=== PATIENT | male | born 1935 | race Caucasian/White ===

== ENCOUNTER 2017-10-06 17:57 | Emergency (ER) | payer OTHER ==
--- NOTE | 2017-10-06 18:09 | PDOC ---
History of Present Illness - General Chief Complaint: Pain Stated Complaint: PAIN Time Seen by Provider: 10/06/17 18:08 History Source: Patient, Care Provider (Father Deni and window [facility]mer [facility]) Exam Limitations: Dementia - History of Present Illness Initial Comments: Pt, w PMH of Parkinson's ds with dementia, HTN, HLD, and DM, presents with chest and back discomfort since yesterday. The pt lives in an assisted living home for retired [facility], and is accompanied by his caregiver, Leslie and Brother Deni. His caregivers state that in the early afternoon today, the pt complained of pain in his upper back between his shoulder blades, which radiated to his R jaw and both arms. On presentation, the pt complained of L sided chest pressure with no radiation. He states the chest tightness comes and goes, lasts for about an hour, and began while he was at rest. The discomfort was not associated with any diaphoresis, nausea or vomiting. He denies any fevers/chills, SOB, syncope, palpitations, swelling in his legs, or changes to his BM or urination. The pt was seen in the ED at [facility] last week (09/22) for a chest tightness and SOB. Cardiac work-up and chest x-ray was negative at that point. Due to lower BP , his PCP (Dr. Montiel) has stopped his HTN medication for the past week. 10/06/17 21:46 10/06/17 22:05 Past History - Travel Traveled outside of the country in the last 30 days: No Close contact w/someone who was outside of country & ill: No - Past Medical History Allergies/Adverse Reactions: Allergies Allergy/AdvReac Type Severity Reaction Status Date / Time No Known Allergies Allergy Verified 10/06/17 18:10 Home Medications: Ambulatory Orders Aspirin [Young Aspirin] 81 mg PO DAILY 02/28/14 Carbidopa/Levodopa [Carbidopa-Levo 50-200 Tab SA] 1 each PO BID 02/28/14 Cholecalciferol (Vitamin D3) [Vitamin D3] 2 tab PO DAILY 02/28/14 Glipizide 10 mg PO DAILY 02/28/14 Lisinopril [Prinivil] 5 mg PO DAILY 02/28/14 Rivastigmine [Exelon Patch 9.5 mg/24 Hours -] 1 each TD DAILY 02/28/14 Rosuvastatin Calcium [Crestor] 20 mg PO DAILY 02/28/14 metFORMIN HCL [Glucophage] 1,000 mg PO DAILY 02/28/14 Anemia: No Asthma: No Cancer: No Cardiac Disorders: No CVA: No COPD: No CHF: No Dementia: No Diabetes: Yes GI Disorders: No Disorders: No HTN: Yes Hypercholesterolemia: Yes Liver Disease: No Psychiatric Problems: Yes (DEMENTIA) Seizures: No Thyroid Disease: No - Surgical History Abdominal Surgery: Yes (appendectomy) Appendectomy: No Cardiac Surgery: No Cholecystectomy: No Lung Surgery: No Neurologic Surgery: No Orthopedic Surgery: No - Immunization History Immunization Up to Date: Yes - Suicide/Smoking/Psychosocial Hx Smoking History: Unknown if ever smoked Have you smoked in the past 12 months: No Hx Alcohol Use: No Drug/Substance Use Hx: No Substance Use Type: None Hx Substance Use Treatment: No Review of Systems - Review of Systems Able to Perform ROS?: Yes (Pt responds appropriately) Is the patient limited Korean proficient: Yes Constitutional: Yes: Weight Stable. No: Chills, Diaphoresis, Fever, Loss of Appetite, Malaise HEENTM: No: Recent change in vision, Difficulty Swallowing Respiratory: No: Cough, Orthopnea, Shortness of Breath, SOB at Rest, Productive cough Cardiac (ROS): Yes: Chest Pain ("pressure" like discomfort in chest), Chest Tightness. No: Edema, Irregular Heart Rate, Lightheadedness, Palpitations, Syncope ABD/GI: No: Abdominal Distended, Abd. Pain w/ defecation, Constipated, Diarrhea , Nausea, Poor Appetite, Poor Fluid Intake, Vomiting, Indigestion : No: Burning, Dysuria, Hematuria, Incontinence, Pain, Urgency Musculoskeletal: No: Back Pain, Joint Pain Integumentary: No: Bruising, Rash, Sweating Neurological: No: Headache, Unsteady Gait Psychiatric: Yes: Mood Swings (Pt has occasional agitation, controlled with Haldol per Dr. Montiel.). No: Sleep Pattern Change, Change in Appetite Endocrine: No: Change in Weight Hematologic/Lymphatic: No: Blood Clots All Other Systems: Reviewed and Negative *Physical Exam - Physical Exam General Appearance: Yes: Nourished, Appropriately Dressed, Thin. No: Apparent Distress HEENT: positive: EOMI, NELL, Normal ENT Inspection, Symmetrical, Hearing Grossly Normal. negative: Normal Voice (slight stuttering, pt has PD. Baseline for pt.) Neck: positive: Trachea midline, Normal Thyroid, Supple. negative: Tender, Rigid Respiratory/Chest: positive: Lungs Clear, Normal Breath Sounds. negative: Chest Tender, Respiratory Distress, Accessory Muscle Use, Crackles Cardiovascular: positive: Regular Rhythm, Regular Rate. negative: Edema, JVD, Murmur Vascular Pulses: Carotid (R): 4+, Carotid (L): 4+ Gastrointestinal/Abdominal: positive: Normal Bowel Sounds, Flat, Soft. negative : Tender, Organomegaly, Pulsatile Mass Lymphatic: negative: Adenopathy Musculoskeletal: positive: Normal Inspection. negative: CVA Tenderness Extremity: positive: Normal Capillary Refill, Normal Inspection, Normal Range of Motion. negative: Pedal Edema, Swelling, Calf Tenderness Integumentary: positive: Normal Color, Dry, Warm. negative: Clammy, Diaphoresis Neurologic: positive: paper maker II-XII NML intact, Fully Oriented, Alert, Normal Response, Motor Strength 5/5, Depressed Affect (Flat affect with stuttering speech.), Other (Pill rolling, resting tremor R hand. ) Heart Score/ECG Review - History History: Slightly suspicious (HTN, HLD. No prior AR. Chest tightness in back which radiates to shoulders. L chest discomfort on presentation.) - Electrocardiogram EKG: Normal - Age Age: >/= 65 - Risk Factors Risk Factors Heart Score: Yes Hx Hypercholesterolemia, Yes Hx Hypertension, Yes Hx Diabetes Based on the list above the patient has:: >/=3 risk factors or Hx atherosclerotic disease - Troponin Troponin: </= normal limit - Score Heart Score - Total: 4 - ECG Intrepretation Rhythm: Regular Rhythm - [place]: Normal - P and MS Prominent R with upright T in V1 (true posterior AR): No Delta Wave(s) Present: No WPW: No - QRS Poor R Wave Progression: No Q Wave Present: No - ST and T Early Repolarization: No Non Specific ST-T Wave changes: No Flattened T Waves: No Prolonged Q-T Interval: No - ECG Impressions Normal ECG: Yes Non-specific ST Elevation: No Ischemic Changes: No Bradycardia: No Torsades korey Pointes: No WPW: No ED Treatment Course - LABORATORY CBC & Chemistry Diagram: 10/06/17 20:00 Medical Decision Making - Medical Decision Making Pt seen 10 minutes after presentation (entered later). Pt presentation similar to prior visit in the ED last week (work-up at that time was negative). Will send CMP (check electrolytes) and troponin to r/o ACS. EKG within normal limits. 10/06/17 20:36 Awaiting chemistry results. Pt comfortable in bed. 10/06/17 20:40 Troponin .02, K within normal limits, BUN 28 (similar to pt baseline). Will repeat troponin at 0:00, if negative pt can return home. Pt and window trimmer agreeable to plan. Pt comfortably sleeping. Nurse alerted of troponin order. 10/06/17 21:20 Pt still lying comfortably in bed. Awaiting 2nd troponin exam. 10/06/17 22:38 Pt still lying comfortably in bed. Awaiting 2nd troponin exam. 10/06/17 23:04 Pt signed-out to Dr. Farrar. He will repeat 2nd troponin exam. 10/06/17 23:35 *DC/Admit/Observation/Transfer Diagnosis at time of Disposition: Parkinson disease Chest pain Qualifiers: Chest pain type: unspecified Qualified Code(s): R07.9 - Chest pain, unspecified - Referrals - Patient Instructions Additional Instructions: Please follow-up with your primary care doctor, Dr. Montiel, to discuss your visit today and recent chest discomfort. Please continue your home medications as prescribed by Dr. Montiel. Please return for any worsening or new chest pain, shortness of breath, fevers/chills, or any other concern. - Post Discharge Activity
[2017-10-06 18:10] VITALS: TEMP 97; BMI 22.6
--- NOTE | 2017-10-06 19:04 | PDOC ---
Attending Attestation - HPI HPI: 10/06/17 21:18 The patient is a 82 year old male with a significant past medical history of diabetes, hypertension, hypercholesterolemia, hyperlipidemia, dementia, Parkinsons, who presents to the emergency department complaining of radiating shoulder pain since 3 days ago. Patient is a moderately poor historian. He presents with left-sided chest pain that radiates through to his back between his shoulder blades and shoulder pain that radiates bilaterally into his arms. He notes that the pain is constant for approximately 1 hour and then subsides. As per patients caregiver, patient has not taken hypertension medication but took aspirin this morning. Patients [facility] brother accompanying him states that he felt okay today but he felt anxious when his roommate fell today and had to go to ER which set off his symptoms. At baseline, patient has right hand resting tremor and is generally responsive. The patient does not currently experience pain. Denies chest tightness, shortness of breath, headache, and dizziness. Denies fevers, chills, nausea, vomiting, diarrhea, and constipation. Denies urinary/bowel changes. Allergies: NKA Past surgical history: appendectomy Social history: No reported cigarette, alcohol, or drug use. PCP: unknown - Physicial Exam PE: 10/06/17 21:20 GENERAL: Moderately anxious. Thin Well-appearing, well-nourished. HEENT: Normocephalic, atraumatic. PERRL, EOM intact. CARDIOVASCULAR: No JVD. Normal S1, S2. Regular rate and rhythm. PULMONARY: Clear to auscultation bilaterally. ABDOMEN: Soft, non-distended, non-tender. EXTREMITIES: No pitting edema. Normal ROM in all four extremities. No gross deformities. SKIN: Warm, dry. No rash NEUROLOGICAL: Resting tremor secondary to Parkinson's. No focal neurological deficits. - Medical Decision Making 10/06/17 21:33 Documentation prepared by Sherrell Diaz, acting as territory sales manager medical for Zulema Nuñez MD. <Sherrell Diaz - Last Filed: 10/06/17 21:18> - Resident Resident Name: Elida Jonas - ED Attending Attestation I have performed the following: I have examined & evaluated the patient, The case was reviewed & discussed with the resident, I agree w/resident's findings & plan, Exceptions are as noted - HPI HPI: 10/06/17 19:02 82-year-old male from residential facility for b/l shoulder pain . He was recently admitted on September 22 for 24 hours for the same complaint and had a negative workup at that time. - Medical Decision Making 10/06/17 20:06 Father Deni [phone] 10/07/17 00:58 2 negative troponin,pt discharged home <Zulema Nuñez - Last Filed: 10/07/17 00:58>
[2017-10-06] MEDS ORDERED: CARBIDOPA/LEVODOPA 25/100 TABLET (FP) ONE ×3 (20:35→20:52)
[2017-10-06 20:45] LABS: ALBUMIN 3.5 g/dl (3.4-5.0); ANION GAP 7 (8-16); BILIRUBIN,TOTAL 0.4 mg/dL (0.2-1.0); BLOOD UREA NITROGEN 28 mg/dL (7-18); CALCIUM 8.6 mg/dL (8.5-10.1); CHLORIDE 106 mmol/L (98-107); CO2 28 mmol/L (21-32); CREATININE 0.9 mg/dL (0.7-1.3); GLUCOSE,RANDOM 80 mg/dL (74-106); POTASSIUM 4.5 mmol/L (3.5-5.1); SGOT/AST 18 U/L (15-37); SGPT/ALT 23 U/L (12-78); SODIUM 141 mmol/L (136-145); TOT PROT 7.2 g/dl (6.4-8.2)
[2017-10-06 20:48] LABS: ALK PHOS 72 U/L (45-117)
[2017-10-06 22:00] VITALS: BP 104/73; PULSE 63
--- NOTE | 2017-10-07 00:59 | PDOC ---
*Physical Exam - Vital Signs Last Vital Signs Temp Pulse Resp BP Pulse Ox 97 F L 63 18 104/73 97 10/06/17 18:00 10/06/17 21:59 10/06/17 21:59 10/06/17 21:59 10/06/17 21:59 ED Treatment Course - LABORATORY CBC & Chemistry Diagram: 10/06/17 20:00 - ADDITIONAL ORDERS Additional order review: Laboratory Results 10/07/17 10/06/17 00:02 20:00 Sodium 141 Potassium 4.5 Chloride 106 Carbon Dioxide 28 Anion Gap 7 L BUN 28 H Creatinine 0.9 Creat Clearance w eGFR > 60 Random Glucose 80 Calcium 8.6 Total Bilirubin 0.4 AST 18 D ALT 23 D Alkaline Phosphatase 72 Troponin I 0.02 0.02 D Total Protein 7.2 Albumin 3.5 - Medications Given in the ED: ED Medications Discontinued Medications Generic Name Dose Route Start Last Admin Trade Name Freq PRN Reason Stop Dose Admin Carbidopa/Levodopa 1 combo 10/06/17 20:05 10/06/17 20:54 Sinemet *Cr* 50/200 - PO 10/06/17 20:06 1 combo ONCE STA Administration *DC/Admit/Observation/Transfer Diagnosis at time of Disposition: Parkinson disease Chest pain Qualifiers: Chest pain type: unspecified Qualified Code(s): R07.9 - Chest pain, unspecified - Discharge Dispostion Disposition: HOME Condition at time of disposition: Stable - Referrals - Patient Instructions Additional Instructions: Please follow-up with your primary care doctor, Dr. Montiel, to discuss your visit today and recent chest discomfort. Please continue your home medications as prescribed by Dr. Montiel. Please return for any worsening or new chest pain, shortness of breath, fevers/chills, or any other concern. - Post Discharge Activity
--- NOTE | 2017-10-09 12:42 | EKG ---
Test Reason : Blood Pressure : / mmHG Vent. Rate : 077 BPM Atrial Rate : 077 BPM P-R Int : 124 ms QRS Dur : 088 ms QT Int : 368 ms P-R-T Axes : 068 -09 062 degrees QTc Int : 416 ms SINUS RHYTHM WITH OCCASIONAL PREMATURE VENTRICULAR COMPLEXES OTHERWISE NORMAL ECG WHEN COMPARED WITH ECG OF 21-SEP-2017 18:32, PREMATURE VENTRICULAR COMPLEXES ARE NOW PRESENT Confirmed by ANGELICA DEVLIN, JANET ([id number]) on 10/09/2017 12:42:39 PM Referred By: Confirmed By:JANET DOMINGUEZ MD
== END 2017-10-07 01:11 | disposition home or self-care (01) ==
LOC: JER 17:57
DX: R07.89 Other chest pain (principal); I10 Essential (primary) hypertension; E78.00 Pure hypercholesterolemia, unspecified; E11.9 Type 2 diabetes mellitus without complications; Z79.84 Long term (current) use of oral hypoglycemic drugs; G20 Parkinson's disease; F02.80 Dementia in other diseases classified elsewhere, unspecified severity, without behavioral disturbance, psychotic disturbance, mood disturbance, and anxiety
CPT/HCPCS: 36415; 80053; 84484; 93005; 93010; 99285-25

== ENCOUNTER 2018-08-30 18:21 | Inpatient (IN) | payer OTHER ==
--- NOTE | 2018-08-30 18:32 | PDOC ---
History of Present Illness - General Chief Complaint: Choking Sensation Stated Complaint: choking Time Seen by Provider: 08/30/18 18:31 - History of Present Illness Initial Comments: 08/30/18 18:38 The patient is an 83 year old male with a history of HTN, HLD, DM, Parkinson's who presents for evaluation following choking from [facility]. Per EMS the patient was eating steak for dinner and began choking. The patient's aid performed the heimlich maneuver on the patient and noted small pieces of food expelled from the patient's mouth. On EMS arrival, the patient was noted to be hypoxic to 70s and experiencing difficulty breathing. He was placed on an non- rebreather with improvement in his O2 saturation. ROS is unobtainable due to the patient's parkinson's disease. The patient has DNR paperwork from 2014. Patient's healthcare proxy was contacted and went to voicecoil. Patient's secondary healthcare proxy was called who confirmed DNR paperwork. Past History - Past Medical History Allergies/Adverse Reactions: Allergies Allergy/AdvReac Type Severity Reaction Status Date / Time No Known Allergies Allergy Verified 10/06/17 18:10 Home Medications: Ambulatory Orders Aspirin [[place] Aspirin EC] 81 mg PO DAILY 02/28/14 Carbidopa/Levodopa [Carbidopa-Levo 50-200 Tab SA] 1 each PO BID 02/28/14 Cholecalciferol (Vitamin D3) [Vitamin D3] 2 tab PO DAILY 02/28/14 Glipizide 10 mg PO DAILY 02/28/14 Lisinopril [Prinivil] 5 mg PO DAILY 02/28/14 Rivastigmine [Exelon Patch 9.5 mg/24 Hours -] 1 each TD DAILY 02/28/14 Rosuvastatin Calcium [Crestor] 20 mg PO DAILY 02/28/14 metFORMIN HCL [Glucophage] 1,000 mg PO DAILY 02/28/14 Anemia: No Asthma: No Cancer: No Cardiac Disorders: No CVA: No COPD: No CHF: No Dementia: No Diabetes: Yes GI Disorders: No Disorders: No HTN: Yes Hypercholesterolemia: Yes Liver Disease: No Psychiatric Problems: Yes (DEMENTIA) Seizures: No Thyroid Disease: No - Surgical History Abdominal Surgery: Yes (appendectomy) Appendectomy: No Cardiac Surgery: No Cholecystectomy: No Lung Surgery: No Neurologic Surgery: No Orthopedic Surgery: No - Immunization History Immunization Up to Date: Yes - Suicide/Smoking/Psychosocial Hx Smoking History: Unknown if ever smoked Have you smoked in the past 12 months: No Hx Alcohol Use: No Drug/Substance Use Hx: No Substance Use Type: None Hx Substance Use Treatment: No Review of Systems - Review of Systems Able to Perform ROS?: No (Parkinson's Disease) *Physical Exam - Vital Signs Last Vital Signs Temp Pulse Resp BP Pulse Ox 94 H 13 150/106 H 100 08/30/18 18:24 08/30/18 18:24 08/30/18 18:24 08/30/18 18:24 - Physical Exam Comments: 08/30/18 18:50 General Appearance: Nourished. No Apparent Distress HEENT: EOMI, NELL. No foreign body noted within the oropharynx. No Pharyngeal Erythema, Tonsillar Exudate, Tonsillar Erythema Neck: No Cervical Lymphadenopathy Respiratory/Chest: Lungs Clear, Poor air movement.. No Crackles, Rales, Rhonchi , Wheezing Cardiovascular: Regular Rhythm, Tachycardic Rate. No Murmur, Gallops, Rubs Gastrointestinal/Abdominal: Normal Bowel Sounds, Soft. No Guarding, Rebound, Tenderness Musculoskeletal: No CVA Tenderness Extremity: Normal Capillary Refill Integumentary: Normal Color, Dry, Warm Neurologic: Pill-rolling tremor. Alert. Moving all extremities. Muscle rigidity noted on exam. ED Treatment Course - LABORATORY CBC & Chemistry Diagram: 08/30/18 18:33 08/30/18 20:40 - RADIOLOGY Radiology Studies Ordered: Category Date Time Status CHEST X-RAY PORTABLE* [RAD] Stat Radiology 08/30/18 18:31 Ordered Medical Decision Making - Medical Decision Making 08/30/18 18:52 The patient is an 83 year old male with a history of HTN, HLD, DM, Parkinson's who presents for evaluation following choking from [facility]. Differential includes but is not limited to: Foreign body, Aspiration, Infectious, Metabolic Derangement. Given the patient's history and physical exam, it is likely the patient aspirated. Chest plain film does not demonstrate air trapping or any other acute process. We will obtain a cbc, cmp, troponin, vbg to evaluate further. The patient will likely require admission for further monitoring. 08/30/18 19:05 Patient reassessed and appears clinical improved. Chest plain film did not demonstrate any acute process. Patient signed out to the night team pending cbc , cmp, troponin, vbg and admission for monitoring. *DC/Admit/Observation/Transfer Diagnosis at time of Disposition: Choking due to food (regurgitated) - Discharge Dispostion Condition at time of disposition: Guarded - Referrals - Patient Instructions - Post Discharge Activity
--- NOTE | 2018-08-30 18:37 | PDOC ---
Attending Attestation - Resident Resident Name: Regulo Holloway - ED Attending Attestation I have performed the following: I have examined & evaluated the patient, The case was reviewed & discussed with the resident, I agree w/resident's findings & plan, Exceptions are as noted - HPI HPI: 08/30/18 18:38 Brother Imer Kemp is an 82 yo M h/o Dementia, Parkinson's, HTN, HLD, and DM He presents via EMS s/p choking episode at his facility Pt apparently choked on steak Heimlich maneuver performed with return of chopped up meat Upon arrival of EMS, pt noted to be hypoxic They had difficulty hearing breath sounds - Physicial Exam PE: 08/30/18 18:37 GENERAL: The patient's eyes open, alert and responsive (speech unintelligible) HEAD: Normal EYES: PERRLA, EOMI, sclera anicteric ENT: Ears normal, moist mucous membranes NECK: Normal range of motion, supple LUNGS: difficult to ascultate breath sounds HEART:Regular rate and rhythm, normal S1 and S2 ABDOMEN: Soft, nondistended EXTREMITIES: Pill rolling tremor, rigidity noted NEUROLOGICAL: Pt is awake, responsive to questioning, cogwheeling, tremor MUSCULOSKELETAL: no deformities noted SKIN: Warm, Dry, normal turgor, no rashes or lesions noted. 08/30/18 18:41 - Medical Decision Making 08/30/18 18:48 83 yo M presenting to the ER s/p choking episode Pt noted to by hypoxic at facility - [facility] Pt has DNR paperwork from 2014 Pt Health care proxy called, went to voice mail (Fr. Love Sarmiento) Pt secondary HCP called (Fr. Prince Mancini), he states he would not want CPR, and re: intubation, do what we think is best He is reaching out to pt primary HCP Pt on NRB mask - O2 saturation 100% Pt respiratory rate not elevated Pt does not appear dyspneic EKG - NSR rate of 92 bpm, axis nml, intervals nml, no st elevation or depression, artifact baseline Labs CXR Will Admit
[2018-08-30 18:48] LABS: VENOUS PC02 64.1 mmHg (41-51); VENOUS PH 7.26 (7.31-7.41)
[2018-08-30 18:49] LABS: VENOUS PO2 15.4 mmHg (30-40)
[2018-08-30 19:02] LABS: BASO % 0.6 % (0-2.0); EOS % 3.2 % (0-4.5); HEMATOCRIT 36.4 % (35.4-49); HEMOGLOBIN 12.1 GM/dL (11.7-16.9); LYMPH % 25.3 % (8-40); MCH 31.3 pg (25.7-33.7); MCHC 33.2 g/dl (32.0-35.9); MEAN CELL VOLUME 94.3 fl (80-96); MEAN PLT VOLUME 10.1 fl (7.5-11.1); MONO % 8.2 % (3.8-10.2); NEUT % 62.7 % (42.8-82.8); RBC 3.87 M/mm3 (4.00-5.60); RDW 13.9 % (11.9-15.9); WHITE BLOOD COUNT 4.5 K/mm3 (4.0-10.0)
--- NOTE | 2018-08-30 19:22 | PDOC ---
*Physical Exam - Vital Signs Last Vital Signs Temp Pulse Resp BP Pulse Ox 94 H 13 150/106 H 98 08/30/18 18:24 08/30/18 18:24 08/30/18 18:24 08/30/18 18:45 - Physical Exam Comments: 08/30/18 19:[address] Holloway. Patient is an 83 year old male history of Hypertension, hyperlipidemia, DM, Parkinsons Disease brought from [facility], came in after he was eating Steak, Heimlich maneuver was performed, tiny particles were obtained. EMS was called, oxygen saturation was 70 %, he was placed in NRB and oxygen sat improved, brought in to the ED. He had shortness of breath and tachycardia. His breathing improved. EKG: Sinus tachy. CXR normal. Labs: CBC normal, rest pending. ED Treatment Course - LABORATORY CBC & Chemistry Diagram: 08/30/18 18:33 08/30/18 20:40 - ADDITIONAL ORDERS Additional order review: Laboratory Results 08/30/18 18:33 VBG pH 7.26 L POC VBG pCO2 64.1 H POC VBG pO2 15.4 L VBG HCO3 27.6 VBG O2 Sat (Quintin) 13.0 L VBG Base Excess -0.3 08/30/18 18:33 RBC 3.87 L MCV 94.3 MCHC 33.2 RDW 13.9 MPV 10.1 Neutrophils % 62.7 D Lymphocytes % 25.3 D Monocytes % 8.2 Eosinophils % 3.2 D Basophils % 0.6 Medical Decision Making - Medical Decision Making 08/30/18 20:32 CMP shows K-6.3. Will treat with 2 doses of Albuterol, repeat BMP and EKG, as discussed with Dr. Monte. 08/30/18 20:[address] Ramos who accepted the patient. Recommends ID/Neuro/ Pulm consult. *DC/Admit/Observation/Transfer Diagnosis at time of Disposition: Choking due to food (regurgitated) - Discharge Dispostion Condition at time of disposition: Guarded - Referrals - Patient Instructions - Post Discharge Activity
[2018-08-30 19:58] LABS: ALBUMIN 3.6 g/dl (3.4-5.0); ALK PHOS 57 U/L (45-117); ANION GAP 8 MMOL/L (8-16); BILIRUBIN,TOTAL 0.5 mg/dL (0.2-1); BLOOD UREA NITROGEN 21.7 mg/dL (7-18); CALCIUM 8.6 mg/dL (8.5-10.1); CHLORIDE 102 mmol/L (98-107); CO2 28 mmol/L (21-32); CREATININE 1.1 mg/dL (0.55-1.3); GLUCOSE,RANDOM 174 mg/dL (74-106); SGOT/AST 32 U/L (15-37); SGPT/ALT 15 U/L (13-61); SODIUM 138 mmol/L (136-145); TOT PROT 7.2 g/dl (6.4-8.2)
[2018-08-30 20:00] LABS: POTASSIUM 6.3 mmol/L (3.5-5.1)
[2018-08-30 20:18] LABS: PLATELET ESTIMATE ADEQUATE
[2018-08-30] MEDS ORDERED: ALBUTEROL SO4 0.083% IH SOL 2.5 MG/3 ML VIAL.NEB. NEB ONE (20:27)
[2018-08-30] MEDS ORDERED: SODIUM CHLORIDE 500 ML IV STA (20:31)
[2018-08-30] MEDS: ALBUTEROL SO4 0.083% IH SOL 2.5 MG/3 ML VIAL.NEB. NEB SCH ×2 (20:44→20:47)
--- NOTE | 2018-08-30 21:34 | PDOC ---
*Physical Exam - Vital Signs Last Vital Signs Temp Pulse Resp BP Pulse Ox 88 20 101/88 100 08/30/18 20:52 08/30/18 20:52 08/30/18 20:52 08/30/18 20:52 - Physical Exam Comments: 08/30/18 21:33 Pt signed out to me. Pt is on NRB O2 and he is comfortable. He is breathing well. Pt has no chest pain and no bad pain and afebrile. Pt has family friends next to him. General Appearance: No: Apparent Distress Neck: positive: Trachea midline, Supple Respiratory/Chest: positive: Lungs Clear, Normal Breath Sounds. negative: Accessory Muscle Use Cardiovascular: positive: Regular Rhythm, Regular Rate, S1, S2 Gastrointestinal/Abdominal: positive: Flat, Soft Musculoskeletal: positive: Normal Inspection, CVA Tenderness Extremity: positive: Normal Capillary Refill, Normal Inspection Integumentary: positive: Normal Color, Dry, Warm ED Treatment Course - LABORATORY CBC & Chemistry Diagram: 08/30/18 18:33 08/30/18 20:40 - ADDITIONAL ORDERS Additional order review: Laboratory Results 08/30/18 08/30/18 18:33 18:33 VBG pH 7.26 L POC VBG pCO2 64.1 H POC VBG pO2 15.4 L VBG HCO3 27.6 VBG O2 Sat (Quintin) 13.0 L VBG Base Excess -0.3 Sodium 138 Potassium 6.3 H* Chloride 102 Carbon Dioxide 28 Anion Gap 8 BUN 21.7 H Creatinine 1.1 Est GFR (CKD-EPI)AfAm 71.57 Est GFR (CKD-EPI)NonAf 61.75 Random Glucose 174 H Calcium 8.6 Total Bilirubin 0.5 AST 32 ALT 15 Alkaline Phosphatase 57 Creatine Kinase 148 Troponin I < 0.02 Total Protein 7.2 Albumin 3.6 08/30/18 18:33 RBC 3.87 L MCV 94.3 MCHC 33.2 RDW 13.9 MPV 10.1 Neutrophils % 62.7 D Lymphocytes % 25.3 D Monocytes % 8.2 Eosinophils % 3.2 D Basophils % 0.6 - Medications Given in the ED: ED Medications Discontinued Medications Generic Name Dose Route Start Last Admin Trade Name Freq PRN Reason Stop Dose Admin Albuterol Sulfate 1 amp 08/30/18 20:30 08/30/18 20:47 Ventolin 0.083% Nebulizer Soln - NEB 08/30/18 20:46 1 amp Q15M DAPHNEY Administration Sodium Chloride 500 mls @ 500 mls/hr 08/30/18 20:31 08/30/18 20:47 Normal Saline - IV 08/30/18 21:30 500 mls/hr ASDIR STA Administration Medical Decision Making - Medical Decision Making 08/30/18 21:35 Patient Name: GILMA FREDERICK THIS IS A PRELIMINARY REPORT FROM [facility] DATE OF SERVICE: 2018-08-30 19:37:19 IMAGES: [id number] EXAM: CT chest without contrast HISTORY: Rule out foreign body COMPARISON: None. FINDINGS: No radiopaque foreign body is seen. There is no pneumothorax. There is minimal atelectasis noted in the lower lobes. No pleural effusion is seen. The heart size is normal. Moderate coronary artery calcification is noted. There is trace pericardial effusion. The thoracic aorta is calcified, tortuous and mildly ectatic in a diffuse fashion. Pt will be admitted for monitoring of his breathing, and possibly for swallowing studies, as needed. *DC/Admit/Observation/Transfer Diagnosis at time of Disposition: Choking due to food (regurgitated) - Discharge Dispostion Condition at time of disposition: Guarded - Referrals - Patient Instructions - Post Discharge Activity
[2018-08-30 21:52] LABS: ALBUMIN 3.5 g/dl (3.4-5.0); BILIRUBIN,TOTAL 0.4 mg/dL (0.2-1); BLOOD UREA NITROGEN 20.3 mg/dL (7-18); CALCIUM 8.8 mg/dL (8.5-10.1); CREATININE 0.8 mg/dL (0.55-1.3); POTASSIUM 4.7 mmol/L (3.5-5.1); TOT PROT 6.8 g/dl (6.4-8.2)
[2018-08-31 04:39] VITALS: BMI 17.2
[2018-08-31] MEDS ORDERED: PATIENT'S OWN MEDICATION (NON-FORMULARY) (Rivastigmine 1 EACH) TD SCH (10:00)
--- NOTE | 2018-08-31 10:21 | CON.NEURO ---
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 History of Recent Travel: Yes Home Medications - Allergies Allergies/Adverse Reactions: Allergies Allergy/AdvReac Type Severity Reaction Status Date / Time No Known Allergies Allergy Verified 10/06/17 18:10 - Home Medications Home Medications: Ambulatory Orders Aspirin [[place] Aspirin EC] 81 mg PO DAILY 02/28/14 Carbidopa/Levodopa [Carbidopa-Levo 50-200 Tab SA] 1 each PO BID 02/28/14 Cholecalciferol (Vitamin D3) [Vitamin D3] 2 tab PO DAILY 02/28/14 Glipizide 10 mg PO DAILY 02/28/14 Lisinopril [Prinivil] 5 mg PO DAILY 02/28/14 Rivastigmine [Exelon Patch 9.5 mg/24 Hours -] 1 each TD DAILY 02/28/14 Rosuvastatin Calcium [Crestor] 20 mg PO DAILY 02/28/14 metFORMIN HCL [Glucophage] 1,000 mg PO DAILY 02/28/14 Physical Exam-Neuro Vital Signs: Vital Signs Temperature 97.6 F 08/31/18 07:16 Pulse Rate 104 H 08/31/18 07:16 Respiratory Rate 18 08/31/18 07:16 Blood Pressure 119/71 08/31/18 07:16 O2 Sat by Pulse Oximetry (%) 95 08/31/18 03:55 Labs: CBC, BMP 08/30/18 18:33 08/30/18 20:40 Assessment/Plan cc Episode of choking and Parkinson disease HPI 83 year old male history of HTN,DM,HLD and PD. Chart reviewed and spoke to nursing . Patient came to hospital for choking , kenroy aguilar did helmich manuever on patient . He was hypoxic and his oxygen level dropped to 70s. Patient is DNR . He is able to eat breakfast as per nursing . He did not have any ct head, He has been afrebirle and normotensive during hospital stay. PMH as above NKDA Home Medications Aspirin [Floyd Aspirin EC] 81 mg PO DAILY 02/28/14 Carbidopa/Levodopa [Carbidopa-Levo 50-200 Tab SA] 1 each PO BID 02/28/14 Cholecalciferol (Vitamin D3) [Vitamin D3] 2 tab PO DAILY 02/28/14 Glipizide 10 mg PO DAILY 02/28/14 Lisinopril [Prinivil] 5 mg PO DAILY 02/28/14 Rivastigmine [Exelon Patch 9.5 mg/24 Hours -] 1 each TD DAILY 02/28/14 Rosuvastatin Calcium [Crestor] 20 mg PO DAILY 02/28/14 metFORMIN HCL [Glucophage] 1,000 mg PO DAILY 02/28/14 NEUROLOGICAL EXAMINATION Alert oriented x 1, he is able to tell his name, his voice of muffled and not able to speak clearly, no neck stiffness, normmo tensive and afebrile no face asymmetry, eye not abl eto examine , moving all ext there is cogwheel rigidity and there is resting tremors seen bilaterally more so on right side no imaging done Assessment/Plan Advanced Parkinson disease , he was on sinemet sr 50/200 one tab po bid, came for choking, could be due to advanced parkinson disease or insufficient medication Plan: incresae 25/100 two tab po tid - speech therapy consult - considering medication after one week, if there is no significant improvement Thanking you so much Carlos Chappell MD
[2018-08-31] MEDS: ASPIRIN COATED 81 MG TABLET.EC PO SCH (10:27)
[2018-08-31] MEDS: LISINOPRIL 5 MG TABLET (FP) PO SCH (10:27)
[2018-08-31] MEDS ORDERED: PT OWN MED DRAWER 7, Y5N ONE ×2 (10:31→21:40)
--- NOTE | 2018-08-31 12:05 | HP ---
Admitting History and Physical - Admission History of Present Illness: The patient is an 83 year old male with a history of HTN, HLD, DM, Parkinson's who presents for evaluation following choking from [facility]. Per EMS the patient was eating steak for dinner and began choking. The patient's aid performed the heimlich maneuver on the patient and noted small pieces of food expelled from the patient's mouth. On EMS arrival, the patient was noted to be hypoxic to 70s and experiencing difficulty breathing. He was placed on an non- rebreather with improvement in his O2 saturation. ROS is unobtainable due to the patient's parkinson's disease. The patient has DNR paperwork from 2014. Patient's healthcare proxy was contacted and went to voicecail. Patient's secondary healthcare proxy was called who confirmed DNR paperwork. 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 Cardiovascular: Yes: HTN, Hyperlipdemia Endocrine: Yes: Diabetes Mellitus - Past Surgical History Past Surgical History: Yes: Appendectomy (L) - Smoking History Smoking history: Unknown if ever smoked Have you smoked in the past 12 months: No - Alcohol/Substance Use Hx Alcohol Use: No - Social History ADL: Support Services Occupation: retired [employer] History of Recent Travel: Yes Home Medications - Allergies Allergies/Adverse Reactions: Allergies Allergy/AdvReac Type Severity Reaction Status Date / Time No Known Allergies Allergy Verified 10/06/17 18:10 - Home Medications Home Medications: Ambulatory Orders Aspirin [[place] Aspirin EC] 81 mg PO DAILY 02/28/14 Carbidopa/Levodopa [Carbidopa-Levo 50-200 Tab SA] 1 each PO BID 02/28/14 Cholecalciferol (Vitamin D3) [Vitamin D3] 2 tab PO DAILY 02/28/14 Glipizide 10 mg PO DAILY 02/28/14 Lisinopril [Prinivil] 5 mg PO DAILY 02/28/14 Rivastigmine [Exelon Patch 9.5 mg/24 Hours -] 1 each TD DAILY 02/28/14 Rosuvastatin Calcium [Crestor] 20 mg PO DAILY 02/28/14 metFORMIN HCL [Glucophage] 1,000 mg PO DAILY 02/28/14 Review of Systems - Review of Systems Constitutional: reports: No Symptoms Eyes: reports: No Symptoms HENT: reports: Difficult Swallowing Neck: reports: No Symptoms Cardiovascular: reports: No Symptoms Respiratory: reports: No Symptoms Gastrointestinal: reports: No Symptoms Genitourinary: reports: No Symptoms Breasts: reports: No Symptoms Reported Musculoskeletal: reports: Decreased ROM, Other (joint stiffness) Integumentary: reports: No Symptoms Neurological: reports: Confusion, Pre-Existing Deficit Endocrine: reports: No Symptoms Hematology/Lymphatic: reports: No Symptoms Physical Examination Vital Signs: Vital Signs Temperature 97.6 F 08/31/18 07:16 Pulse Rate 104 H 08/31/18 07:16 Respiratory Rate 18 08/31/18 07:16 Blood Pressure 119/71 08/31/18 07:16 O2 Sat by Pulse Oximetry (%) 95 08/31/18 03:55 Constitutional: Yes: Well Nourished, Calm Eyes: Yes: Other (left eye with crusting and injected) HENT: Yes: WNL Neck: Yes: Supple, Trachea Midline Cardiovascular: Yes: Regular Rate and Rhythm Respiratory: Yes: Regular Gastrointestinal: Yes: Normal Bowel Sounds ...Rectal Exam: Yes: Deferred Renal/: Yes: WNL Breast(s): Yes: WNL Musculoskeletal: Yes: Joint Stiffness Edema: No Peripheral Pulses WNL: Yes Integumentary: Yes: WNL Neurological: Yes: Alert, Dysarthria, Pre-Existing Deficit, Tremors (right > left) Psychiatric: Yes: Alert Labs: CBC, BMP 08/30/18 18:33 08/30/18 20:40 Problem List - Problems (1) Choking due to food (regurgitated) Code(s): T17.320A - FOOD IN LARYNX CAUSING ASPHYXIATION, INITIAL ENCOUNTER (2) Parkinson disease Code(s): G20 - PARKINSON'S DISEASE (3) Diabetes mellitus Code(s): E11.9 - TYPE 2 DIABETES MELLITUS WITHOUT COMPLICATIONS (4) Dyspnea Code(s): R06.00 - DYSPNEA, UNSPECIFIED (5) Hyperlipemia Code(s): E78.5 - HYPERLIPIDEMIA, UNSPECIFIED (6) Hypertension Code(s): I10 - ESSENTIAL (PRIMARY) HYPERTENSION (7) Conjunctivitis of left eye Code(s): H10.9 - UNSPECIFIED CONJUNCTIVITIS
--- NOTE | 2018-08-31 12:57 | CON.PULM ---
Consult Consult Specialty:: PULMONARY Referred by:: Dr Reilly Reason for Consultation:: hypoxia - History of Present Illness Chief Complaint: choking History of Present Illness: 83yo male with h/o HTN, DM, hyperlipidemia, Parkinsons Disease who was admitted with choking episode while eating. Noted to be hypoxic and was short of breath at that time. Currently states his breathing is improved. No current cough or shortness of breath. No fevers, chills or sweats. CT chest done without any evidence of airways obstruction. 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 History of Recent Travel: Yes Home Medications - Allergies Allergies/Adverse Reactions: Allergies Allergy/AdvReac Type Severity Reaction Status Date / Time No Known Allergies Allergy Verified 10/06/17 18:10 - Home Medications Home Medications: Ambulatory Orders Aspirin [[place] Aspirin EC] 81 mg PO DAILY 02/28/14 Carbidopa/Levodopa [Carbidopa-Levo 50-200 Tab SA] 1 each PO BID 02/28/14 Cholecalciferol (Vitamin D3) [Vitamin D3] 2 tab PO DAILY 02/28/14 Glipizide 10 mg PO DAILY 02/28/14 Lisinopril [Prinivil] 5 mg PO DAILY 02/28/14 Rivastigmine [Exelon Patch 9.5 mg/24 Hours -] 1 each TD DAILY 02/28/14 Rosuvastatin Calcium [Crestor] 20 mg PO DAILY 02/28/14 metFORMIN HCL [Glucophage] 1,000 mg PO DAILY 02/28/14 Review of Systems - Review of Systems Constitutional: denies: Chills, Fever Eyes: denies: Recent Change in Vision HENT: denies: Nasal Congestion, Throat Pain Neck: denies: Decreased ROM, Stiffness Cardiovascular: reports: Shortness of Breath. denies: Chest Pain Respiratory: reports: Cough. denies: Hemoptysis, Wheezing Gastrointestinal: denies: Abdominal Pain, Nausea, Vomiting Genitourinary: denies: Dysuria, Hematuria Neurological: denies: Dizziness, Headache Endocrine: denies: Unexplained Weight Loss Physical Exam Vital Sings: Vital Signs Temperature 97.6 F 08/31/18 07:16 Pulse Rate 104 H 08/31/18 07:16 Respiratory Rate 18 08/31/18 07:16 Blood Pressure 119/71 08/31/18 07:16 O2 Sat by Pulse Oximetry (%) 95 08/31/18 03:55 Constitutional: Yes: Calm Eyes: Yes: Conjunctiva Clear, EOM Intact HENT: Yes: Atraumatic, Normocephalic Neck: Yes: Supple, Trachea Midline Cardiovascular: Yes: Regular Rate and Rhythm Respiratory: Yes: Diminished (decreased breath sounds at the bases) ...Clubbing: No Gastrointestinal: Yes: Normal Bowel Sounds, Soft. No: Tenderness Edema: No Neurological: Yes: Alert, Oriented Labs: CBC, BMP 08/30/18 18:33 08/30/18 20:40 Imaging - Results Chest X-ray: Report Reviewed, Image Reviewed Cat Scan: Image Reviewed (no infiltrates, no endobronchial lesions) Problem List - Problems (1) Choking due to food (regurgitated) Code(s): T17.320A - FOOD IN LARYNX CAUSING ASPHYXIATION, INITIAL ENCOUNTER Assessment/Plan Choking episode Hypoxia resolved Parkinsons Disease HTN Hyperlipidemia - no acute findings on CT chest and pt currently asymptomatic - would just monitor for now - DVT prophylaxis Thank you for this consult Rex Ngo MD
--- NOTE | 2018-08-31 13:12 | PN ---
Progress Note (short form) - Note Progress Note: ID CONSULT DICTATED S/P CHOKING EPISODE/ HYPOXIA CT NO INFILTRATE OBSERVE OFF ANTIBIOTICS SWALLOWING EVAL
--- NOTE | 2018-08-31 13:46 | CONS ---
INFECTIOUS DISEASE CONSULTATION DATE OF CONSULTATION: DATE OF DICTATION: 08/31/2018. HISTORY OF PRESENT ILLNESS: The patient is an 83-year-old male with a history of parkinsonism evaluated for hypoxemia. History was obtained from the chart as he could not give a history. He had apparently had a choking episode at his residence while eating steak. His attendant performed a Heimlich maneuver. He was brought to the emergency room where he was noted to be hypoxemic with an O2 saturation in the 70s. He was also short of breath, requiring a nonrebreather mask. A chest x-ray, CAT scan of the chest were performed and were negative for acute infiltrate. His breathing has now improved on nasal cannula. He has been tolerating a diet. He offers no complaints. On questioning he denies any chest pain or shortness of breath. PAST MEDICAL HISTORY: Positive for dementia, hyperlipidemia, hypertension, diabetes mellitus, parkinsonism. PAST SURGICAL HISTORY: Status post appendectomy. ALLERGIES: No known allergies. MEDICATIONS: Include aspirin, Lipitor, Sinemet, lisinopril. SOCIAL HISTORY: He is a nonsmoker, nondrinker. Lives in a [place] for retired [place]. SYSTEMS REVIEW: Neurologic: Positive for parkinsonism. Cardiac: Negative for chest pain or palpitations. Respiratory: As per HPI. Gastrointestinal: As per HPI. Genitourinary: Negative for urinary tract infection. LABORATORY DATA: White count 4.5, hematocrit 36.4. BUN 20, creatinine 0.8. PHYSICAL EXAMINATION: General: He is awake, in no acute distress. Breathing is nonlabored on nasal cannula. Vital Signs: Temperature is 97.6, blood pressure 119/71, pulse 104, regular, respirations 18 per minute. HEENT: Sclerae are anicteric. Heart: Sounds S1, S2. Lungs: Clear. Poor inspiratory effort. Abdomen: Soft, nontender. Extremities: Negative for edema. Negative Homans. There is rigidity of the extremities. IMPRESSION: 1. Status post choking episode/hypoxemia. 2. Parkinsonism. 3. Diabetes mellitus. The patient appears clinically stable at this time, afebrile, with a normal white blood cell count, breathing is nonlabored, imaging negative for infiltrate. Observe off antibiotic therapy, aspiration precautions, swallowing evaluation. Thank you for the kind referral. MELI CRUZ M.D. [id number]
[2018-08-31] MEDS ORDERED: ATORVASTATIN CA 40 MG TABLET (FP) PO SCH (22:00)
[2018-08-31] MEDS: TOBRAMYCIN 0.3% OPHTH SOLN 5 ML BOTTLE OS SCH (23:45)
[2018-09-01 07:51] LABS: BLOOD UREA NITROGEN 19.7 mg/dL (7-18); CALCIUM 9.4 mg/dL (8.5-10.1); CREATININE 0.9 mg/dL (0.55-1.3); MAGNESIUM 1.7 mg/dL (1.8-2.4); POTASSIUM 4.8 mmol/L (3.5-5.1)
[2018-09-01 09:23] LABS: HEMATOCRIT 36.3 % (35.4-49); HEMOGLOBIN 12.4 GM/dL (11.7-16.9); MCH 31.6 pg (25.7-33.7); MCHC 34.2 g/dl (32.0-35.9); MEAN CELL VOLUME 92.4 fl (80-96); MEAN PLT VOLUME 8.6 fl (7.5-11.1); RBC 3.93 M/mm3 (4.00-5.60); RDW 13.8 % (11.9-15.9); WHITE BLOOD COUNT 5.8 K/mm3 (4.0-10.0)
--- NOTE | 2018-09-01 09:45 | PN ---
Progress Note (short form) - Note Progress Note: 83 year old male history of HTN,DM,HLD and PD. Chart reviewed and spoke to nursing . Patient came to hospital for choking , kenroy aguilar did helmich manuever on patient . He was hypoxic and his oxygen level dropped to 70s. Patient is DNR . He is able to eat breakfast as per nursing . He did not have any ct head during hospitalization. Patient was seen with guest room attendant at bedside. Patient is able to eat breakfast. NEUROLOGICAL EXAMINATION Alert oriented x 1, he is able to tell his name, voice is very muffled his voice of muffled and not able to speak clearly, no neck stiffness, normmo tensive and afebrile no face asymmetry, eye not abl eto examine , moving all ext there is cogwheel rigidity and there is resting tremors seen bilaterally more so on right side no imaging done Assessment/Plan Advanced Parkinson disease , he was on sinemet sr 50/200 one tab po bid, came for choking, could be due to advanced parkinson disease or insufficient medication Plan: incresae 25/100 two tab po tid - speech therapy consult - considering medication after one week, if there is no significant improvement Thanking you so much Carlos Chappell MD
[2018-09-01] MEDS ORDERED: CHOLECALCIFEROL (VIT D3) 1,000 UNIT (25 MCG) TABLET PO SCH (10:00)
--- NOTE | 2018-09-01 11:04 | PN ---
Progress Note (short form) - Note Progress Note: Resting in NAD. Awake but confused. No acute events overnight. Intake & Output 08/29/18 08/30/18 08/31/18 09/01/18 23:59 23:59 23:59 23:59 Intake Total 1900 0 Balance 1900 0 Weight 110 lb 107 lb Last Vital Signs Temp Pulse Resp BP Pulse Ox 97.9 F 67 18 134/75 95 09/01/18 06:00 09/01/18 06:00 09/01/18 06:00 09/01/18 06:00 08/31/18 09:00 Active Medications Aspirin (Ecotrin -) 81 mg PO DAILY [facility] Last Admin: 08/31/18 10:27 Dose: 81 mg Atorvastatin Calcium (Lipitor -) 40 mg PO HS [facility] Last Admin: 08/31/18 23:45 Dose: 40 mg Carbidopa/Levodopa (Sinemet 25/100 -) 2 each PO TID [facility] Cholecalciferol (Vitamin D3 -) 1,000 unit PO DAILY [facility] Lisinopril (Prinivil) 5 mg PO DAILY [facility] Last Admin: 08/31/18 10:27 Dose: 5 mg Non-Formulary Medication (Rivastigmine) 1 each TD DAILY [facility] Tobramycin Sulfate (Tobrex Ophthalmic Solution -) 1 drop OS Q4HWA [facility] Last Admin: 08/31/18 23:45 Dose: 1 drop Constitutional: Yes: NAD Eyes: Yes: Conjunctiva Clear HENT: Yes: Atraumatic, Normocephalic Neck: Yes: Supple, Trachea Midline Cardiovascular: Yes: Regular Rate and Rhythm Respiratory: Yes: Diminished breath sounds at the bases ...Clubbing: No Gastrointestinal: Yes: Normal Bowel Sounds, Soft. No: Tenderness Edema: No Neurological: Yes: Awake, confused Labs: Laboratory Results - last 24 hr 09/01/18 09/01/18 09/01/18 06:40 06:40 09:11 WBC Cancelled 5.8 Corrected WBC (auto) Cancelled RBC Cancelled 3.93 L Hgb Cancelled 12.4 Hct Cancelled 36.3 MCV Cancelled 92.4 MCH Cancelled 31.6 MCHC Cancelled 34.2 RDW Cancelled 13.8 Plt Count Cancelled MPV Cancelled 8.6 D Manual Slide Review Cancelled Platelet Comment Cancelled Sodium 139 Potassium 4.8 Chloride 104 Carbon Dioxide 32 Anion Gap 3 L BUN 19.7 H Creatinine 0.9 Est GFR (CKD-EPI)AfAm 91.22 Est GFR (CKD-EPI)NonAf 78.71 Random Glucose 105 Calcium 9.4 Magnesium 1.7 L TSH 2.35 Problem List - Problems (1) Choking due to food (regurgitated) Code(s): T17.320A - FOOD IN LARYNX CAUSING ASPHYXIATION, INITIAL ENCOUNTER Assessment/Plan Choking episode Hypoxia resolved Parkinsons Disease HTN Hyperlipidemia No acute findings on CT chest and pt currently asymptomatic Would continue to monitor clinically Aspiration precautions VTE prophylaxis Dr Heredia
--- NOTE | 2018-09-01 11:46 | EKG ---
Test Reason : Blood Pressure : / mmHG Vent. Rate : 092 BPM Atrial Rate : 092 BPM P-R Int : 110 ms QRS Dur : 088 ms QT Int : 360 ms P-R-T Axes : 054 -17 065 degrees QTc Int : 445 ms SINUS RHYTHM WITH SHORT MN NONSPECIFIC ST AND T WAVE ABNORMALITY BASELINE ARTIFACT ABNORMAL ECG WHEN COMPARED WITH ECG OF 06-OCT-2017 18:20, PREMATURE VENTRICULAR COMPLEXES ARE NO LONGER PRESENT Confirmed by LAISHA DEVLIN, OSCAR ([id number]) on 09/01/2018 11:46:27 AM Referred By: Confirmed By:OSCAR INTERIANO MD
--- NOTE | 2018-09-01 11:55 | DS ---
Physical Examination Vital Signs: Vital Signs Temperature 97.9 F 09/01/18 06:00 Pulse Rate 67 09/01/18 06:00 Respiratory Rate 18 09/01/18 06:00 Blood Pressure 134/75 09/01/18 06:00 O2 Sat by Pulse Oximetry (%) 95 08/31/18 09:00 Findings/Remarks: The patient is an 83 year old male with a history of HTN, HLD, DM, Parkinson's who presents for evaluation following choking from [facility]. Per EMS the patient was eating steak for dinner and began choking. The patient's aid performed the heimlich maneuver on the patient and noted small pieces of food expelled from the patient's mouth. On EMS arrival, the patient was noted to be hypoxic to 70s and experiencing difficulty breathing. He was placed on an non- rebreather with improvement in his O2 saturation. ROS is unobtainable due to the patient's parkinson's disease. The patient has DNR paperwork from 2014. Patient was admitted and evaluated by neurology - medications adjusted and well tolerated. He has been able to tolerate PO well. Pulmonary evaluation also completed. CXT and CT scan negative for aspiration. Patient has remained stable, POC was discussed with Father Fr Imer Cheema has 24 h/7D live in care. He will have neuro follow up as an out patient, and will be seen by PCP, Dr Myers with next 3 days. Constitutional: Yes: Thin, Other (frail elderly male) Eyes: Yes: Conjunctiva Clear, EOM Intact HENT: Yes: Atraumatic, Normocephalic Neck: Yes: Supple, Trachea Midline Cardiovascular: Yes: Regular Rate and Rhythm Respiratory: Yes: CTA Bilaterally Gastrointestinal: Yes: Normal Bowel Sounds, Soft ...Rectal Exam: Yes: Deferred Renal/: Yes: WNL Breast(s): Yes: WNL Musculoskeletal: Yes: Joint Stiffness Extremities: Yes: WNL. No: Cool, Cyanosis, Deformity Edema: No Peripheral Pulses WNL: Yes Integumentary: Yes: WNL Neurological: Yes: Alert, Oriented Psychiatric: Yes: Alert Labs: CBC, BMP 09/01/18 09:11 09/01/18 06:40 Discharge Summary Reason For Visit: CHOCKING DUE TO FOOD IN LARYNX Current Active Problems Choking due to food (regurgitated) (Acute) Conjunctivitis of left eye (Acute) Parkinson DM II HTN HLD Condition: Improved - Instructions Diet, Activity, Other Instructions: feed with aspiration precautions POC discussed with Father Deni patient with 15/10 live in care Disposition: HOME - Home Medications Comprehensive Discharge Medication List: Ambulatory Orders Aspirin [[place] Aspirin EC] 81 mg PO DAILY 02/28/14 Carbidopa/Levodopa [Carbidopa-Levo 50-200 Tab SA] 1 each PO TID 02/28/14 Cholecalciferol (Vitamin D3) [Vitamin D3] 2 tab PO DAILY 02/28/14 Glipizide 10 mg PO DAILY 02/28/14 Lisinopril [Prinivil] 5 mg PO DAILY 02/28/14 Rivastigmine [Exelon Patch 9.5 mg/24 Hours -] 1 each TD DAILY 02/28/14 Rosuvastatin Calcium [Crestor] 20 mg PO DAILY 02/28/14 metFORMIN HCL [Glucophage] 1,000 mg PO DAILY 02/28/14
[2018-09-01] MEDS ORDERED: MAGNESIUM SULF 50% (8.12 MEQ/2 ML-1 GM VIAL) IVPB ONE (12:00)
[2018-09-01] MEDS: TOBRAMYCIN 0.3% OPHTH SOLN 5 ML BOTTLE OS SCH ×2 (12:06→13:27)
[2018-09-01] MEDS: ASPIRIN COATED 81 MG TABLET.EC PO SCH (12:07)
[2018-09-01] MEDS: LISINOPRIL 5 MG TABLET (FP) PO SCH (12:14)
[2018-09-01] MEDS ORDERED: INSULIN (LEVEMIR) 100 UNITS/ML UNITS SQ ONE (13:14)
[2018-09-01] MEDS ORDERED: CARBIDOPA/LEVODOPA 25/100 TABLET (FP) PO SCH (14:00)
[2018-09-01 16:35] VITALS: BP 150/88; PULSE 71; TEMP 98
== END 2018-09-01 16:47 | disposition home or self-care (01) | DRG 57 ==
LOC: JER 18:21 → JERBED 21:15 → J8W 08-31 00:38
PROVIDERS: ADMIT Family Medicine; ATTEND Family Medicine
DX: G20 Parkinson's disease (principal); J98.11 Atelectasis; T17.320A Food in larynx causing asphyxiation, initial encounter; I10 Essential (primary) hypertension; E78.5 Hyperlipidemia, unspecified; E11.9 Type 2 diabetes mellitus without complications; Z79.84 Long term (current) use of oral hypoglycemic drugs; F02.80 Dementia in other diseases classified elsewhere, unspecified severity, without behavioral disturbance, psychotic disturbance, mood disturbance, and anxiety; Z66 Do not resuscitate; X58.XXXA Exposure to other specified factors, initial encounter; Y93.89 Activity, other specified; Y92.89 Other specified places as the place of occurrence of the external cause; Y99.8 Other external cause status
CPT/HCPCS: 36415; 71045-TC-FY; 71250-TC; 80048; 80053; 82550; 82803; 83735; 84443; 84484; 85025; 85027; 93005; 93010; 97116-GP; 97162-GP; 99285-25